=== PATIENT | female | born 1990 | race Caucasian/White ===

== ENCOUNTER 2018-12-11 05:51 | Inpatient (IN) | payer MEDICAID ==
[2018-12-11] MEDS ORDERED: MISOPROSTOL 200 MCG TAB PR ×2 (06:00→09:00)
[2018-12-11] MEDS ORDERED: METHYLERGONOVINE 0.2 MG INJ IM ×2 (06:00→09:00)
[2018-12-11] MEDS ORDERED: CARBOPROST 250 MCG INJ IM ×2 (06:00→09:00)
[2018-12-11] MEDS: LACTATED RINGER'S 1,000 ML IV ×3 (06:05→21:00)
[2018-12-11] MEDS: METOCLOPRAMIDE 10 MG INJ IV (07:40)
[2018-12-11] MEDS: CITRIC ACID/NA CITRATE 30 ML CUP PO ×2 (07:40→12:00)
[2018-12-11] MEDS: FAMOTIDINE 20 MG INJ IV (07:40)
[2018-12-11] MEDS ORDERED: morphine SULFATE/PF (10 MG/10 ML) INJ (07:41)
[2018-12-11] MEDS ORDERED: ONDANSETRON 4 MG INJ (08:22)
[2018-12-11] MEDS ORDERED: PHENYLephrine (100 MCG/ML) 10ML SYG (08:32)
[2018-12-11] MEDS ORDERED: EPHEDrine 25 MG/5 ML SYG (08:32)
[2018-12-11] MEDS ORDERED: OXYTOCIN 30 UNITS/LR 500 ML IV ×2 (08:36→09:00)
[2018-12-11] MEDS ORDERED: NACL 0.9% 3 ML SYG IV (09:00)
[2018-12-11] MEDS ORDERED: NALOXONE (0.4 MG/ML) INJ IV (09:00)
[2018-12-11] MEDS ORDERED: EPHEDrine 25 MG/5 ML SYG IV (09:00)
[2018-12-11] MEDS ORDERED: FENTAnyl 50 MCG/ML VIAL IV (09:00)
[2018-12-11] MEDS ORDERED: HYDROmorphONE 0.5 MG/0.5 ML SYG IV ×2 (09:00)
[2018-12-11] MEDS ORDERED: HYDROmorphONE 1 MG/5 ML IV SYRINGE IV ×3 (09:00)
[2018-12-11] MEDS ORDERED: DIPHENHYDRAMINE 50 MG INJ IV ×2 (09:00)
[2018-12-11] MEDS ORDERED: ONDANSETRON 4 MG INJ IV ×2 (09:00)
[2018-12-11] MEDS ORDERED: MEPERIDINE 25 MG INJ IV (09:00)
[2018-12-11] MEDS ORDERED: PROCHLORPERAZINE 10 MG INJ IV (09:00)
[2018-12-11] MEDS ORDERED: KETOROLAC 30 MG INJ IV (09:00)
[2018-12-11] MEDS: CEFAZOLIN 2 GM/50 ML (PMX) 50 ML IVPB (09:24)
[2018-12-11] MEDS: OXYTOCIN 30 UNITS/LR 500 ML IV ×3 (09:32→16:05)
[2018-12-11] MEDS: IBUPROFEN 600 MG TAB PO ×2 (12:00→18:00)
[2018-12-11] MEDS: KETOROLAC 30 MG INJ IV ×2 (13:11→21:15)
[2018-12-12] MEDS: LACTATED RINGER'S 1,000 ML IV (00:56)
[2018-12-12] MEDS: KETOROLAC 30 MG INJ IV (03:54)
[2018-12-12] MEDS: IBUPROFEN 600 MG TAB PO ×4 (06:00→17:48)
[2018-12-12] MEDS: LANOLIN HPA 1 PKT TOP (08:45)
[2018-12-12] MEDS: OXYCODONE/ACETAMINOPHEN (5/325) TAB PO ×2 (10:26→21:04)
[2018-12-13] MEDS: IBUPROFEN 600 MG TAB PO ×5 (00:14→23:41)
[2018-12-13] MEDS: OXYCODONE/ACETAMINOPHEN (5/325) TAB PO ×4 (04:24→23:44)
[2018-12-14] MEDS: OXYCODONE/ACETAMINOPHEN (5/325) TAB PO (05:34)
[2018-12-14] MEDS: IBUPROFEN 600 MG TAB PO ×2 (05:34→11:50)
== END 2018-12-14 14:35 | disposition home or self-care (01) | DRG 785 ==
LOC: L-D 05:51 → PP1 11:49
PROC: 10D00Z1 Extraction of Products of Conception, Low, Open Approach (ICD-10-PCS; principal; 2018-12-11 07:30)
PROC: 0UB70ZZ Excision of Bilateral Fallopian Tubes, Open Approach (ICD-10-PCS; 2018-12-11 07:30)
DX: O34.211 Maternal care for low transverse scar from previous cesarean delivery (principal); Z3A.39 39 weeks gestation of pregnancy; Z37.0 Single live birth; Z30.2 Encounter for sterilization
CPT/HCPCS: 85025; 85610; 85730; 86592; 86850; 86900; 86901; 87340; 88302; 99464